=== PATIENT | female | born 1980 | race Caucasian/White ===

== ENCOUNTER 2019-07-06 20:27 | Emergency (ER) | payer OTHER ==
[2019-07-06] MEDS: SOD CHLORIDE 0.9% 1,000 ML IV (20:59)
== END 2019-07-06 22:32 | disposition home or self-care (01) ==
LOC: E/R 20:27
DX: R55 Syncope and collapse (principal); D64.9 Anemia, unspecified; E11.9 Type 2 diabetes mellitus without complications
CPT/HCPCS: 36415; 80048; 81003; 81025; 84439; 84443; 84484; 85025; 93005; 99284-25